=== PATIENT | male | born 1945 | race Caucasian/White ===

== ENCOUNTER 2017-09-30 14:44 | Emergency (ER) | payer OTHER ==
[~2017-09-30] VITALS: Ht 177.8 cm; Wt 83.6 kg
[2017-09-30 14:47] VITALS: TEMP 36.7; Ht 177.8 cm; Wt 83.6 kg
[2017-09-30] MEDS ORDERED: LIDO/EPINEPHRINE/SOD BICARB 20 ML VIAL INFIL ONE (14:54)
[2017-09-30] MEDS ORDERED: SODIUM CHLORIDE 0.9% 1000ML 1,000 ML IV STA (14:57)
[2017-09-30 15:00] VITALS: O2SAT 96
[2017-09-30] MEDS ORDERED: DIPHTHERIA/TETANUS/PERTUSSIS 0.5 ML SYR/VIAL IM. ONE (15:00)
--- NOTE | 2017-09-30 15:01 | EMERGENCY ROOM VISIT NOTE ---
History Report prepared by Brian: James Garcia Under the Supervision of: Dr. Gordy Santos M.D. First contact with patient: 14:49 Chief Complaint: HEAD INJURY (MAJOR) Stated Complaint: TRAUMA History of Present Illness The patient is a 72 year old white male with a past medical history of endocarditis, heart disease with bypass, mitral valve repair, and possible CVA who presents to the ED via EMS with a cc of a sudden head injury that occurred around 2 hours ago. Positive loss of consciousness, left-sided weakness, laceration. Negative notable pain. Per EMS, the patient fell into a band saw, and has a resulting head injury. The patient was noted to lose consciousness while being transferred into the ambulance. He takes a low-dose Aspirin daily but no other blood thinners. He notes that his left side "is not doing what [he ] wants it to do", which most likely caused him to fall. He says that prior to the accident, his left side was working fine. Source of History: patient, EMS Onset: 2 hours ago Position: head Symptom Intensity: laceration Quality: other (injury from saw) Timing: other (sudden) Associated Symptoms: + LOC, + weakness (left side) Note: Associated symptoms: Denies notable pain. Review of Systems See HPI for pertinent positives and negatives. A total of ten systems were reviewed and were otherwise negative. Past Medical & Surgical Medical Problems: (1) Endocarditis (2) Heart disease Surgical Problems: (1) History of heart bypass surgery Family History Family history omitted secondary to patient's advanced age. Social History Drug Use: none Housing Status: lives with family Occupation Status: retired Current/Historical Medications Unable to Obtain Active Prescriptions or Reported Meds Allergies Coded Allergies: No Known Allergies (Unverified , 09/30/17) Physical Exam Vital Signs Date Time Temp Pulse Resp B/P (MAP) Pulse Ox O2 Delivery O2 Flow Rate FiO2 09/30/17 16:20 80 16 142/82 94 Room Air 09/30/17 15:59 80 16 159/87 94 Room Air 09/30/17 15:46 159/87 09/30/17 15:43 84 16 95 09/30/17 15:32 138/86 09/30/17 15:28 80 20 148/86 95 Room Air 09/30/17 15:28 84 19 95 09/30/17 15:27 79 09/30/17 15:15 81 20 148/85 95 Room Air 09/30/17 15:00 96 Room Air 09/30/17 14:50 81 18 159/103 96 Room Air 09/30/17 14:47 36.7 78 18 159/103 96 Room Air 09/30/17 14:47 18 96 Physical Exam GENERAL: Awake, alert, well-appearing, NAD HENT: 12 cm laceration right parietal area across toward forehead. EYES: Blown right pupil. Normal conjunctiva. Sclera non-icteric. NECK: Supple. No nuchal rigidity. FROM. RESPIRATORY: CTAB, no rhonchi, wheezing, crackles CARDIAC: RRR, no MRG ABDOMEN: Soft, NTND, BS+ MSK: No chest wall TTP, no LE edema. Midline sternotomy scar. NEURO: GCS 15, CN 2-12 intact. Left upper extremity 1/5. Left lower extremity 4/ 5. SKIN: No rash or jaundice noted. Medical Decision & Procedures ER Provider Diagnostic Interpretation: Radiology results as stated below per my review and radiologist interpretation: HEAD WITHOUT CONTRAST (CT) CT DOSE: 614.27 mGy.cm HISTORY: Trauma. Mental status change EVALUATE FOR TRAUMA/INJURY TECHNIQUE: Multiaxial CT images of the head were performed without the use of intravenous contrast. A dose lowering technique was utilized adhering to the principles of ALARA. Comparison: None. Findings: Evidence for a bone laceration over the skull convexity. This is oriented obliquely and is nondisplaced from a left superior frontal region to the mid right parietal apex. Intracranial air is noted associated with a parenchymal hematoma measuring 3.9 x 3.2 cm. Hematoma shows a moderate degree of surrounding vasogenic edema. Intracranial air is identified anterior to the right frontal lobe extending to the right inferior frontal fossa. The remaining visualized osseous structures appear unremarkable. There is no evidence for bony depression. Impression: 1. Nondisplaced linear bone laceration over the superior cranial cranial vault as described. 2. Intracranial air over the cerebral convexity as well as in the right perifrontal region. 3. Intracranial bleed superior right frontal/parietal lobe medially deep to the bone laceration. 4. This potentially is posttraumatic, although the possibly of a hemorrhagic infarct or hemorrhagic neoplasm is not excluded. 5. No evidence of midline shift of significance at the current time. The above report was generated using voice recognition software. It may contain grammatical, syntax or spelling errors. Electronically signed by: Case Gifford M.D 09/30/2017 3:19 PM Dictated Date/Time: 09/30/2017 3:14 PM CHEST ONE VIEW PORTABLE CLINICAL HISTORY: EVALUATE FOR TRAUMA/INJURY trauma COMPARISON STUDY: No previous studies for comparison. FINDINGS: The bones soft tissues and hemidiaphragms are normal. The cardiomediastinal silhouette is normal. The lungs are clear. The pulmonary vasculature is normal. Evidence for prior median sternotomy. Moderate calcification mitral annulus. IMPRESSION: No acute process. The above report was generated using voice recognition software. It may contain grammatical, syntax or spelling errors. Electronically signed by: Case Gifford M.D. 09/30/2017 3:42 PM Dictated Date/Time: 09/30/2017 3:41 PM Laboratory Results 09/30/17 15:04 Red Blood Count 4.30, Mean Corpuscular Volume 93.3, Mean Corpuscular Hemoglobin 32.6, Mean Corpuscular Hemoglobin Concent 34.9, Mean Platelet Volume 9.5, Neutrophils (%) (Auto) 86.1, Lymphocytes (%) (Auto) 8.7, Monocytes (%) (Auto) 4.4, Eosinophils (%) (Auto) 0.3, Basophils (%) (Auto) 0.1, Neutrophils # (Auto) 13.97, Lymphocytes # (Auto) 1.42, Monocytes # (Auto) 0.71, Eosinophils # (Auto) 0.05, Basophils # (Auto) 0.02 09/30/17 15:04 Test 09/30/17 15:03 09/30/17 15:04 Bedside Prothrombin Time INR 1.0 (0.9-1.1) White Blood Count 16.24 K/uL (4.8-10.8) Red Blood Count 4.30 M/uL (4.7-6.1) Hemoglobin 14.0 g/dL (14.0-18.0) Hematocrit 40.1 % (42-52) Mean Corpuscular Volume 93.3 fL (80-100) Mean Corpuscular Hemoglobin 32.6 pg (25-34) Mean Corpuscular Hemoglobin Concent 34.9 g/dl (32-36) Platelet Count 178 K/uL (130-400) Mean Platelet Volume 9.5 fL (7.4-10.4) Neutrophils (%) (Auto) 86.1 % Lymphocytes (%) (Auto) 8.7 % Monocytes (%) (Auto) 4.4 % Eosinophils (%) (Auto) 0.3 % Basophils (%) (Auto) 0.1 % Neutrophils # (Auto) 13.97 K/uL (1.4-6.5) Lymphocytes # (Auto) 1.42 K/uL (1.2-3.4) Monocytes # (Auto) 0.71 K/uL (0.11-0.59) Eosinophils # (Auto) 0.05 K/uL (0-0.5) Basophils # (Auto) 0.02 K/uL (0-0.2) RDW Standard Deviation 42.5 fL (36.4-46.3) RDW Coefficient of Variation 12.5 % (11.5-14.5) Immature Granulocyte % (Auto) 0.4 % Immature Granulocyte # (Auto) 0.07 K/uL (0.00-0.02) Prothrombin Time 10.7 SECONDS (9.0-12.0) Prothromb Time International Ratio 1.0 (0.9-1.1) Activated Partial Thromboplast Time 24.0 SECONDS (21.0-31.0) Partial Thromboplastin Ratio 0.9 Anion Gap 6.0 mmol/L (3-11) Est Creatinine Clear Calc Drug Dose 44.8 ml/min Estimated GFR () 51.5 Estimated GFR (Non- 44.4 BUN/Creatinine Ratio 12.8 (10-20) Calcium Level 8.8 mg/dl (8.5-10.1) Total Bilirubin 0.7 mg/dl (0.2-1) Direct Bilirubin 0.2 mg/dl (0-0.2) Aspartate Amino Transf (AST/SGOT) 22 U/L (15-37) Alanine Aminotransferase (ALT/SGPT) 29 U/L (12-78) Alkaline Phosphatase 79 U/L (45-117) Troponin I 0.016 ng/ml (0-0.045) Total Protein 7.3 gm/dl (6.4-8.2) Albumin 4.0 gm/dl (3.4-5.0) Laboratory results reviewed by me Medications Administered Medications (Trade) Dose Ordered Sig/Lucy Route Start Time Stop Time Status Last Admin Dose Admin Sodium Chloride 1,000 ml @ 999 mls/hr Q1H1M STAT IV 09/30/17 14:57 09/30/17 15:57 DC 09/30/17 14:57 999 MLS/HR Diphtheria/ Pertussis/Tetanus Vacc (Adacel Inj) 0.5 ml ONCE ONCE IM. 09/30/17 15:00 09/30/17 15:01 DC 09/30/17 15:37 0.5 ML Vancomycin HCl 1500 mg/Sodium Chloride 280 ml @ 125 mls/hr NOW STAT IV 09/30/17 15:22 09/30/17 17:21 DC 09/30/17 15:37 125 MLS/HR Levetiracetam 1500 mg/Dextrose 115 ml @ 440 mls/hr ONE ONCE IV 09/30/17 15:30 09/30/17 15:45 DC 09/30/17 15:37 440 MLS/HR Cefepime HCl 2000 mg/Syringe 20 ml @ 5 mls/min NOW STAT IV 09/30/17 15:53 09/30/17 15:56 DC 09/30/17 16:05 5 MLS/MIN Ondansetron HCl (Zofran Inj) 4 mg NOW STAT IV 09/30/17 16:14 09/30/17 16:15 DC 09/30/17 16:21 4 MG ED Course 1450: The patient was evaluated in room B1. A complete history and physical exam was performed. 1540: I discussed the patient with Dr. Chapman of the [facility] ED - he will accept the patient via transfer and will evaluate the patient for further treatment. 1542: I reevaluated the patient and he is resting. I discussed the results with the patient, and told him that he will be transferred to the [facility] ED. He expressed understanding and agreement. Medical Decision The patient is a 72 year old white male with a past medical history of endocarditis, heart disease with bypass, mitral valve repair, and possible CVA who presents to the ED via EMS with a cc of a sudden head injury that occurred around 2 hours ago. Positive loss of consciousness, left-sided weakness, laceration. Negative notable pain. Differential diagnosis: Etiologies such as fracture, dislocation, intra-abdominal, pneumothorax, intrathoracic , intracranial, neurologic, as well as other traumatic pathologies were entertained. Patient was seen and evaluated at the bedside. Patient purportedly had some concerns of some left upper extremity weakness around 1245 while he was using a band saw. Patient then did have a fall and struck the band saw in the head. Patient does have a notedthe head. Patient also does have noted left upper extremity greater than left lower extremity weakness in addition to a right blown pupil. Patient does have a prior history of a lens replacement which may be related to the anisocoria. Patient did have blood work that was completed along with a CT of the brain. A code stroke was called given that the patient was symptomatic prior to his traumatic incident. Patient did have noted open fracture of his school with some bleeding. Patient may had a hemorrhagic stroke versus ischemic stroke alert is difficult to say given the presents now for the blood is. It is not appear to be directly where the basal ganglia are. Patient was given broad-spectrum antibiotics as well as Keppra for the open fracture and seizure prophylaxis respectively. Patient did take a baby aspirin but does not take any other blood thinning medications. Patient has normal coagulation studies, hemoglobin, platelet count. Given these findings I did discuss the patient with the transfer center as well as Dr. Chapman of the emergency department at [facility] as well as the trauma surgeon. Patient was [place] [facility] Head Trauma GCS Score: 15 Medication Reconcilliation Current Medication List: was personally reviewed by me Blood Pressure Screening Patient's blood pressure: Elevated blood pressure Refer to [facility] ER physicians. Consults Time Called: 1535 Consulting Physician: Dr. Chapman of the [facility] ED Returned Call: 1540 I discussed the patient with Dr. Chapman of the [facility] ED - he will accept the patient via transfer and will evaluate the patient for further treatment. Impression Primary Impression: Skull fracture Additional Impressions: Laceration of head Fall LUE weakness CVA (cerebral vascular accident) Critical Care I have personally spent greater than 45 minutes of critical care time in the direct management of this patient. This includes bedside care, interpretation of diagnostic studies, and testing, discussion with consultants, patient, and family members, and other required patient management activities. This 45 minutes is in excess of all separately billable procedures. Scribe Attestation The scribe's documentation has been prepared under my direction and personally reviewed by me in its entirety. I confirm that the note above accurately reflects all work, treatment, procedures, and medical decision making performed by me. Time Last Known Well 1245 Stroke t-PA Criteria Reviewed Does NOT meet criteria for t-PA Reason t-PA Not Given Contraindicated Strict Exclusion Criteria CT findings of ICH or SAH Departure Information Dispostion Transfer Acute Care Facility (to [facility]) Prescriptions Unable to Obtain Active Prescriptions or Reported Meds Patient Instructions My [facility] Problem Qualifiers Primary Impression: Skull fracture Encounter type: initial encounter Skull bone/location: parietal bone Fracture type: open Qualified Codes: S02.0XXB - Fracture of vault of skull, initial encounter for open fracture Additional Impressions: Laceration of head Encounter type: initial encounter Location of open wound of head: scalp Foreign body presence: without foreign body Qualified Codes: S01.01XA - Laceration without foreign body of scalp, initial encounter Fall Encounter type: initial encounter Qualified Codes: W19.XXXA - Unspecified fall, initial encounter CVA (cerebral vascular accident) CVA mechanism: unspecified Qualified Codes: I63.9 - Cerebral infarction, unspecified
--- NOTE | 2017-09-30 15:20 | DIAGNOSTIC IMAGING REPORT ---
HEAD WITHOUT CONTRAST (CT) CT DOSE: 614.27 mGy.cm HISTORY: Trauma. Mental status change EVALUATE FOR TRAUMA/INJURY TECHNIQUE: Multiaxial CT images of the head were performed without the use of intravenous contrast. A dose lowering technique was utilized adhering to the principles of ALARA. Comparison: None. Findings: Evidence for a bone laceration over the skull convexity. This is oriented obliquely and is nondisplaced from a left superior frontal region to the mid right parietal apex. Intracranial air is noted associated with a parenchymal hematoma measuring 3.9 x 3.2 cm. Hematoma shows a moderate degree of surrounding vasogenic edema. Intracranial air is identified anterior to the right frontal lobe extending to the right inferior frontal fossa. The remaining visualized osseous structures appear unremarkable. There is no evidence for bony depression. Impression: 1. Nondisplaced linear bone laceration over the superior cranial cranial vault as described. 2. Intracranial air over the cerebral convexity as well as in the right perifrontal region. 3. Intracranial bleed superior right frontal/parietal lobe medially deep to the bone laceration. 4. This potentially is posttraumatic, although the possibly of a hemorrhagic infarct or hemorrhagic neoplasm is not excluded. 5. No evidence of midline shift of significance at the current time. The above report was generated using voice recognition software. It may contain grammatical, syntax or spelling errors. Electronically signed by: Case Gifford M.D. 09/30/2017 3:19 PM Dictated Date/Time: 09/30/2017 3:14 PM
[2017-09-30] MEDS ORDERED: CEFTRIAXONE SOD INJ 1 GM ADDVIAL IV STA (15:22)
[2017-09-30] MEDS ORDERED: VANCOMYCIN INJ 1,500 MG in SODIUM CHLORIDE 0.9% 250ML 250 ML IV STA (15:22)
[2017-09-30] MEDS ORDERED: LEVETIRACETAM IV 1,500 MG in DEXTROSE 5% 100ML 100 ML IV ONE (15:30)
[2017-09-30 15:31] LABS: BASO % 0.1 %; BASO ABS # 0.02 K/uL (0-0.2); EOS % 0.3 %; EOS ABS # 0.05 K/uL (0-0.5); HEMATOCRIT 40.1 % (42-52); IG# 0.07 K/uL (0.00-0.02); LYMPH % 8.7 %; LYMPH ABS # 1.42 K/uL (1.2-3.4); MEAN CELL VOLUME 93.3 fL (80-100); MEAN CORPUSCULAR HEMOGLOBIN 32.6 pg (25-34); MEAN CORPUSCULAR HGB CONC 34.9 g/dl (32-36); MEAN PLATELET VOLUME 9.5 fL (7.4-10.4); MONO % 4.4 %; MONO ABS # 0.71 K/uL (0.11-0.59); NEUT % 86.1 %; NEUT ABS # 13.97 K/uL (1.4-6.5); PLATELET COUNT 178 K/uL (130-400); RED CELL DISTRIBUTION WIDTH CV 12.5 % (11.5-14.5); RED CELL DISTRIBUTION WIDTH SD 42.5 fL (36.4-46.3); WHITE BLOOD COUNT 16.24 K/uL (4.8-10.8)
[2017-09-30 15:33] LABS: CALCIUM 8.8 mg/dl (8.5-10.1); CREATININE 1.54 mg/dl (0.60-1.40); POTASSIUM 3.9 mmol/L (3.5-5.1)
[2017-09-30 15:36] LABS: TOTAL PROTEIN 7.3 gm/dl (6.4-8.2)
[2017-09-30] MEDS ORDERED: CEFEPIME IV 2,000 MG in DEXTROSE 5% 100ML 100 ML IV STA (15:41)
--- NOTE | 2017-09-30 15:43 | DIAGNOSTIC IMAGING REPORT ---
CHEST ONE VIEW PORTABLE CLINICAL HISTORY: EVALUATE FOR TRAUMA/INJURY trauma COMPARISON STUDY: No previous studies for comparison. FINDINGS: The bones soft tissues and hemidiaphragms are normal. The cardiomediastinal silhouette is normal. The lungs are clear. The pulmonary vasculature is normal. Evidence for prior median sternotomy. Moderate calcification mitral annulus. IMPRESSION: No acute process. The above report was generated using voice recognition software. It may contain grammatical, syntax or spelling errors. Electronically signed by: Case Gifford M.D. 09/30/2017 3:42 PM Dictated Date/Time: 09/30/2017 3:41 PM
[2017-09-30] MEDS ORDERED: CEFEPIME IV 2,000 MG in SYRINGE 7.5 ML IV STA (15:53)
[2017-09-30] MEDS ORDERED: ONDANSETRON INJ 2 MG/ML 2 ML VIAL IV STA (16:14)
[2017-09-30] MEDS ORDERED: ONDANSETRON INJ 2 MG/ML 2 ML VIAL ONE (16:14)
[2017-09-30 16:20] VITALS: BP 142/82; PULSE 80; O2SAT 94
== END 2017-09-30 16:25 | disposition short-term general hospital (02) ==
LOC: C.EDB 14:48
DX: S01.01XA Laceration without foreign body of scalp, initial encounter (principal); S02.0XXB Fracture of vault of skull, initial encounter for open fracture; I63.9 Cerebral infarction, unspecified; M62.81 Muscle weakness (generalized); W31.2XXA Contact with powered woodworking and forming machines, initial encounter; Y92.9 Unspecified place or not applicable; I38 Endocarditis, valve unspecified; I51.9 Heart disease, unspecified; Z95.1 Presence of aortocoronary bypass graft; Z79.82 Long term (current) use of aspirin

== ENCOUNTER 2017-11-30 07:04 | Emergency (ER) | payer OTHER ==
[~2017-11-30] VITALS: Ht 177.8 cm; Wt 76.4 kg
[2017-11-30 07:11] VITALS: TEMP 36.8; Ht 177.8 cm; Wt 76.4 kg
[2017-11-30] MEDS ORDERED: SODIUM CHLORIDE 0.9% 1000ML 1,000 ML IV STA (07:32)
[2017-11-30] MEDS ORDERED: TAMS0.4C38 PO (07:59)
[2017-11-30] MEDS ORDERED: AMLO-114 PO (07:59)
[2017-11-30] MEDS ORDERED: CIPR1TAB10 PO (07:59)
[2017-11-30] MEDS ORDERED: BRIM0.1S OP (07:59)
[2017-11-30] MEDS ORDERED: MULT-513 PO (07:59)
[2017-11-30] MEDS ORDERED: BRIM0.15 OP (07:59)
[2017-11-30] MEDS ORDERED: PROB1TAB16 PO (07:59)
[2017-11-30 08:06] LABS: BASO % 0.2 %; BASO ABS # 0.03 K/uL (0-0.2); EOS % 1.5 %; HEMATOCRIT 34.7 % (42-52); HEMOGLOBIN 11.7 g/dL (14.0-18.0); IG# 0.04 K/uL (0.00-0.02); LYMPH % 9.5 %; LYMPH ABS # 1.23 K/uL (1.2-3.4); MEAN CORPUSCULAR HGB CONC 33.7 g/dl (32-36); MEAN PLATELET VOLUME 9.1 fL (7.4-10.4); MONO % 6.9 %; NEUT % 81.6 %; NEUT ABS # 10.55 K/uL (1.4-6.5); PLATELET COUNT 272 K/uL (130-400); RED CELL DISTRIBUTION WIDTH CV 14.1 % (11.5-14.5); RED CELL DISTRIBUTION WIDTH SD 47.1 fL (36.4-46.3); WHITE BLOOD COUNT 12.95 K/uL (4.8-10.8)
[2017-11-30 08:21] LABS: ALBUMIN 3.3 gm/dl (3.4-5.0); CALCIUM 9.1 mg/dl (8.5-10.1); CREATININE 1.24 mg/dl (0.60-1.40); POTASSIUM 3.8 mmol/L (3.5-5.1)
[2017-11-30 08:24] LABS: TOTAL PROTEIN 7.4 gm/dl (6.4-8.2)
--- NOTE | 2017-11-30 09:38 | EMERGENCY ROOM VISIT NOTE ---
History Report prepared by Brian: James Garcia Under the Supervision of: Dr. Giancarlo Dumont D.O. First contact with patient: 07:18 Chief Complaint: DIARRHEA Stated Complaint: ANTIBIOTIC USE - POSSIBLE C-DIFF Nursing Triage Summary: Pt states pt was in [facility], in [facility] he had a UTI,took antibiotic and got C-Diff. Now he's On Cipro for Urinary infection and he started with Diarrhead yesterday morning. Hx Stroke, left arm in sling for arm weakness. Lives at home now. History of Present Illness The patient is a 72 year old male with a history of a stroke and persistent left arm weakness who presents to the Emergency Room coming from home with complaints of persistent diarrhea that started 3 days ago. He states that he had C. difficile a couple weeks ago and was treated with a round of Vancomycin. The patient notes that before he got the C. difficile he cut his head with a chainsaw, and was treated with antibiotics for that. He says that he finished the round of the Vancomycin a week ago. The patient now has a UTI, per the patient's , and the patient had been in [facility] when the UTI started. He was put on Cipro for the UTI. However, the patient started having intense diarrhea yesterday morning. The patient denies any abdominal pain. Source of History: patient, spouse/significant other Onset: 3 days ago Position: other (global - diarrhea) Symptom Intensity: intense Quality: other (hx of C difficile) Timing: other (persistent) Associated Symptoms: No abdominal pain Note: No other associated symptoms noted. Review of Systems See HPI for pertinent positives & negatives. A total of 10 systems reviewed and were otherwise negative. Past Medical & Surgical Medical Problems: (1) Endocarditis (2) Heart disease Surgical Problems: (1) History of heart bypass surgery Family History Family history limited secondary to patient's advanced age. Social History Smoking Status: Never Smoker Drug Use: none Housing Status: lives with family Occupation Status: retired Current/Historical Medications Scheduled Amlodipine (Norvasc), 10 MG PO DAILY Brimonidine Tartrate (Alphagan P Oph), 1 DROP OP BID Ciprofloxacin Hcl (Cipro), 500 MG PO BID Multivitamins/Minerals (Mvi With Minerals), 1 TAB PO DAILY Probiotic Product (Probiotic), 1 TAB PO DAILY Tamsulosin Hcl (Flomax), 0.4 MG PO HS Allergies Coded Allergies: No Known Allergies (Unverified , 09/30/17) Physical Exam Vital Signs Date Time Temp Pulse Resp B/P (MAP) Pulse Ox O2 Delivery O2 Flow Rate FiO2 11/30/17 09:43 75 11/30/17 09:01 76 18 145/81 97 Room Air 11/30/17 07:42 89 11/30/17 07:11 36.8 99 16 144/82 97 Room Air Physical Exam CONSTITUTIONAL/VITAL SIGNS: Reviewed / noted above. GENERAL: Non-toxic in appearance. INTEGUMENTARY: Warm, dry, and [employer]. HEAD: Normocephalic. Completely healed wound to the head. EYES: without scleral icterus or trauma. ENT/OROPHARYNX: clear and moist. LYMPHADENOPATHY/NECK: Is supple without lymphadenopathy or meningismus. RESPIRATORY: Lungs clear and equal. CARDIOVASCULAR: Regular rate and rhythm. GI/ABDOMEN: Soft and nontender. No organomegaly or pulsatile mass. No rebound or guarding. Normal bowel sounds. EXTREMITIES: Warm and well perfused. BACK: No CVA tenderness. NEUROLOGICAL: Intact without focal deficits. PSYCHIATRIC: normal affect. MUSCULOSKELETAL: Normally developed with good muscle tone. TRIAGE NURSING DOCUMENTATION REVIEWED. Medical Decision & Procedures Laboratory Results 11/30/17 07:53 Red Blood Count 3.77, Mean Corpuscular Volume 92.0, Mean Corpuscular Hemoglobin 31.0, Mean Corpuscular Hemoglobin Concent 33.7, Mean Platelet Volume 9.1, Neutrophils (%) (Auto) 81.6, Lymphocytes (%) (Auto) 9.5, Monocytes (%) (Auto) 6.9, Eosinophils (%) (Auto) 1.5, Basophils (%) (Auto) 0.2, Neutrophils # (Auto) 10.55, Lymphocytes # (Auto) 1.23, Monocytes # (Auto) 0.90, Eosinophils # (Auto) 0.20, Basophils # (Auto) 0.03 11/30/17 07:53 Test 11/30/17 07:53 White Blood Count 12.95 K/uL (4.8-10.8) Red Blood Count 3.77 M/uL (4.7-6.1) Hemoglobin 11.7 g/dL (14.0-18.0) Hematocrit 34.7 % (42-52) Mean Corpuscular Volume 92.0 fL (80-100) Mean Corpuscular Hemoglobin 31.0 pg (25-34) Mean Corpuscular Hemoglobin Concent 33.7 g/dl (32-36) Platelet Count 272 K/uL (130-400) Mean Platelet Volume 9.1 fL (7.4-10.4) Neutrophils (%) (Auto) 81.6 % Lymphocytes (%) (Auto) 9.5 % Monocytes (%) (Auto) 6.9 % Eosinophils (%) (Auto) 1.5 % Basophils (%) (Auto) 0.2 % Neutrophils # (Auto) 10.55 K/uL (1.4-6.5) Lymphocytes # (Auto) 1.23 K/uL (1.2-3.4) Monocytes # (Auto) 0.90 K/uL (0.11-0.59) Eosinophils # (Auto) 0.20 K/uL (0-0.5) Basophils # (Auto) 0.03 K/uL (0-0.2) RDW Standard Deviation 47.1 fL (36.4-46.3) RDW Coefficient of Variation 14.1 % (11.5-14.5) Immature Granulocyte % (Auto) 0.3 % Immature Granulocyte # (Auto) 0.04 K/uL (0.00-0.02) Anion Gap 8.0 mmol/L (3-11) Est Creatinine Clear Calc Drug Dose 55.6 ml/min Estimated GFR () 66.9 Estimated GFR (Non- 57.7 BUN/Creatinine Ratio 14.8 (10-20) Calcium Level 9.1 mg/dl (8.5-10.1) Total Bilirubin 0.5 mg/dl (0.2-1) Direct Bilirubin 0.1 mg/dl (0-0.2) Aspartate Amino Transf (AST/SGOT) 10 U/L (15-37) Alanine Aminotransferase (ALT/SGPT) 22 U/L (12-78) Alkaline Phosphatase 64 U/L (45-117) Total Protein 7.4 gm/dl (6.4-8.2) Albumin 3.3 gm/dl (3.4-5.0) Laboratory results as stated above per my review. Medications Administered Medications (Trade) Dose Ordered Sig/Lucy Route Start Time Stop Time Status Last Admin Dose Admin Sodium Chloride 1,000 ml @ 999 mls/hr Q1H1M STAT IV 11/30/17 07:32 11/30/17 08:32 DC 11/30/17 08:00 999 MLS/HR Ceftriaxone Sodium (Rocephin Inj) 1 gm NOW STAT IV 11/30/17 09:42 11/30/17 09:43 DC 11/30/17 10:01 1 GM ED Course 0718: Previous medical records were reviewed. The patient was evaluated in room B8. A complete history and physical examination was performed. 0732: Ordered NSS 1000 ml @ 999 mls/hr IV. 0939: On reevaluation, the patient is resting comfortably. I discussed the results and findings with the patient. He verbalized agreement of the treatment plan. He was discharged home. 0942: Ordered Rocephin Inj 1 gm IV. Medical Decision Differential diagnosis: Etiologies such as C. difficile, gastroenteritis, food borne illness, infections , appendicitis, diverticulitis, inflammatory bowel disease, obstruction, GI bleed, biliary pathology, as well as others were entertained. This is a 72-year-old male who presents to the ED with a chief complaint of diarrhea. The patient had a traumatic head wound in late September that required antibiotics. The patient subsequently developed C. difficile diarrhea and finished a course of Flagyl about 1 week ago. His diarrhea resolved. The patient started Cipro for UTI on . He developed diarrhea yesterday morning. The patient has had this since yesterday. He came in for evaluation of the diarrhea. Patient's exam was normal. The patient's blood work reveals a white blood cell count of 12.95, hemoglobin is 11.7, complete metabolic panel was unremarkable. The patient was unable to have any diarrhea during his stay. He was given IV Rocephin for his urinary tract infection. He states that he has had 3 doses of Cipro thus far. He was here for over 3 hours. He was felt to be stable for discharge. A urine dip here revealed 1+ leukocytes. No nitrites. A culture has been sent. The patient was advised to discontinue his antibiotics as his symptoms have mostly abated. The patient will need contacted if he has a positive urine culture. Of note, the urine was obtained before his Rocephin was given. Medication Reconcilliation Current Medication List: was personally reviewed by me Blood Pressure Screening Patient's blood pressure: Elevated blood pressure Blood pressure disposition: Elevated BP felt to be situational Impression Primary Impression: Diarrhea Scribe Attestation The scribe's documentation has been prepared under my direction and personally reviewed by me in its entirety. I confirm that the note above accurately reflects all work, treatment, procedures, and medical decision making performed by me. Departure Information Dispostion Home / Self-Care Referrals No Doctor, Assigned (PCP) Patient Instructions My [facility] Additional Instructions Follow-up with your doctor for further care and evaluation in 1-2 days. Return to the emergency department for worsening or new symptoms or any concerns. You have been examined and treated today on an emergency basis only. This is not a substitute for, or an effort to provide, complete comprehensive medical care. It is impossible to recognize and treat all injuries or illnesses in a single emergency department visit. It is therefore important that you follow up closely with your doctor. Call as soon as possible for an appointment. Stop your antibiotics for now. Call here for urine culture results on Friday around noon for urine culture results if your have not been contacted before then. Problem Qualifiers Primary Impression: Diarrhea Diarrhea type: unspecified type Qualified Codes: R19.7 - Diarrhea, unspecified
[2017-11-30] MEDS ORDERED: CEFTRIAXONE SOD INJ 1 GM ADDVIAL IV STA (09:42)
[2017-11-30 11:02] VITALS: BP 129/65; PULSE 75; O2SAT 98
[2017-11-30] MEDS ORDERED: VANC5CAP PO (12:34)
--- NOTE | 2017-11-30 12:35 | EMERGENCY ROOM VISIT NOTE ---
ED Visit Note First contact with patient: 07:18 The patient was able to give a stool sample just prior to discharge. The stool sample came back positive for C. difficile. The patient was sent in a prescription for vancomycin for 10 days.
== END 2017-11-30 11:04 | disposition home or self-care (01) ==
LOC: C.EDB 07:06
DX: R19.7 Diarrhea, unspecified (principal); I51.9 Heart disease, unspecified; Z87.19 Personal history of other diseases of the digestive system

== ENCOUNTER 2017-12-17 11:14 | Emergency (ER) | payer OTHER ==
[~2017-12-17] VITALS: Ht 177.8 cm; Wt 89.0 kg
[~2017-12-17 11:14] MED LIST: AMLO-114 PO; BRIM0.1S OP; CIPR1TAB10 PO; MULT-513 PO; PROB1TAB16 PO; TAMS0.4C38 PO; VANC5CAP PO
[2017-12-17 11:15] VITALS: TEMP 37.1
[2017-12-17] MEDS ORDERED: SODIUM CHLORIDE 0.9% 1000ML 1,000 ML IV STA (11:36)
[2017-12-17 11:46] VITALS: O2SAT 98; Ht 177.8 cm; Wt 89.0 kg
[2017-12-17 12:13] LABS: BASO % 0.2 %; BASO ABS # 0.03 K/uL (0-0.2); EOS % 0.5 %; EOS ABS # 0.08 K/uL (0-0.5); HEMATOCRIT 38.2 % (42-52); HEMOGLOBIN 12.9 g/dL (14.0-18.0); IG# 0.05 K/uL (0.00-0.02); LYMPH % 5.5 %; LYMPH ABS # 0.94 K/uL (1.2-3.4); MEAN CELL VOLUME 91.6 fL (80-100); MEAN CORPUSCULAR HEMOGLOBIN 30.9 pg (25-34); MEAN CORPUSCULAR HGB CONC 33.8 g/dl (32-36); MEAN PLATELET VOLUME 9.3 fL (7.4-10.4); MONO % 6.4 %; MONO ABS # 1.09 K/uL (0.11-0.59); NEUT % 87.1 %; NEUT ABS # 14.76 K/uL (1.4-6.5); PLATELET COUNT 249 K/uL (130-400); RED CELL DISTRIBUTION WIDTH CV 14.4 % (11.5-14.5); RED CELL DISTRIBUTION WIDTH SD 48.4 fL (36.4-46.3); WHITE BLOOD COUNT 16.95 K/uL (4.8-10.8)
--- NOTE | 2017-12-17 12:30 | DIAGNOSTIC IMAGING REPORT ---
HEAD CT NONCONTRAST CT DOSE: 687.98 mGy.cm HISTORY: Altered mental status. TECHNIQUE: Multiaxial CT images of the head were performed without the use of intravenous contrast. Automated exposure control was utilized for this study. A dose lowering technique was utilized adhering to the principles of ALARA. Comparison: Head CT 09/30/2017. Findings: The paranasal sinuses and mastoid air cells are clear. There is a linear defect remaining at the high convexity of the calvarium due to the old trauma. Trace right subdural fluid collection is noted. This demonstrates a maximal thickness of 5 mm. 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 No significant midline shift. Encephalomalacia within the right high convexity due to the old parenchymal hematoma/injury. There are small focal areas of encephalomalacia within the left frontal lobe and left cerebral hemisphere consistent with old infarcts. Stable 1.8 x 4.5 cm CSF density extra-axial focus within the left posterior fossa. This results in mild mass effect along the cerebellar hemisphere. This favors an arachnoid cyst. There is no mass, acute infarct, or acute intracranial hemorrhage. Impression: Chronic and old posttraumatic changes as described above. No acute intracranial abnormality. Electronically signed by: Jaswinder Jenkins M.D. 12/17/2017 12:28 PM Dictated Date/Time: 12/17/2017 12:15 PM
[2017-12-17 12:34] LABS: ALBUMIN 3.8 gm/dl (3.4-5.0); BLOOD UREA NITROGEN 18 mg/dl (7-18); CALCIUM 9.1 mg/dl (8.5-10.1); CARBON DIOXIDE 25 mmol/L (21-32); CREATININE 1.17 mg/dl (0.60-1.40); GLUCOSE 94 mg/dl (70-99); POTASSIUM 3.6 mmol/L (3.5-5.1); SODIUM 136 mmol/L (136-145)
--- NOTE | 2017-12-17 12:39 | DIAGNOSTIC IMAGING REPORT ---
CHEST ONE VIEW PORTABLE CLINICAL HISTORY: Pt c/o syncope COMPARISON STUDY: 09/30/2017 FINDINGS: Prior median sternotomy. Lungs are clear. Small calcified granulomas unchanged. Diaphragms smooth. Costophrenic angles are sharp. IMPRESSION: Chronic granulomatous change. No acute process. The above report was generated using voice recognition software. It may contain grammatical, syntax or spelling errors. Electronically signed by: Case Gifford M.D. 12/17/2017 12:38 PM Dictated Date/Time: 12/17/2017 12:37 PM
[2017-12-17 12:44] LABS: ALKALINE PHOSPHATASE 80 U/L (45-117); ALT/SGPT 33 U/L (12-78); AST/SGOT 19 U/L (15-37); CKMB 1.8 ng/ml (0.5-3.6); TOTAL PROTEIN 7.8 gm/dl (6.4-8.2)
--- NOTE | 2017-12-17 13:25 | EMERGENCY ROOM VISIT NOTE ---
History Report prepared by Brian: Pippa Flores Under the Supervision of: Dr. Giancarlo Summers M.D. First contact with patient: 11:27 Chief Complaint: SYNCOPE Stated Complaint: SYNCOPE History of Present Illness The patient is a 72 year old male who presents to the Emergency Room with complaints of an episode of syncope occurring [employer]. The patient is currently attending outpatient therapy at [facility] after a stroke and a head injury occurring in September 2017. He was at therapy today and was sitting on a chair. While he was seated he began to feel diaphoretic and slightly dizzy. This lasted for about a minute and then the patient had a syncopal episode. He does not remember passing out. Witnesses told him that he was unconscious for a few seconds. The patient states that he had been feeling well all day. He denies any headache or abdominal pain. 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 A total of 10 systems reviewed and were otherwise negative. Past Medical & Surgical Medical Problems: (1) Endocarditis (2) Heart disease Surgical Problems: (1) History of heart bypass surgery Family History No pertinent history stated. Social History Smoking Status: Never Smoker Drug Use: none Marital Status: Housing Status: lives with family Occupation Status: retired Current/Historical Medications Scheduled Amlodipine (Norvasc), 10 MG PO DAILY Brimonidine Tartrate (Alphagan P Oph), 1 DROP OP BID Multivitamins/Minerals (Mvi With Minerals), 1 TAB PO DAILY Tamsulosin Hcl (Flomax), 0.4 MG PO HS Allergies Coded Allergies: No Known Allergies (Unverified , 12/17/17) Physical Exam Vital Signs Date Time Temp Pulse Resp B/P (MAP) Pulse Ox O2 Delivery O2 Flow Rate FiO2 12/17/17 13:44 77 20 125/72 98 12/17/17 12:48 69 20 119/69 98 Room Air 12/17/17 12:46 67 20 119/69 98 Room Air 69 134/76 92 133/79 12/17/17 11:46 98 Room Air 12/17/17 11:46 98 Room Air 12/17/17 11:22 78 12/17/17 11:15 37.1 73 20 144/80 98 Room Air Physical Exam GENERAL: Awake, alert, well-appearing, in no acute distress HENT: Normocephalic, atraumatic. Oropharynx unremarkable. EYES: Normal conjunctiva. Sclera non-icteric. NECK: Supple. No nuchal rigidity. FROM. No JVD. RESPIRATORY: Clear to auscultation. CARDIAC: Regular rate, normal rhythm. 2/6 systolic ejection murmur. Extremities warm and well perfused. Pulses equal. ABDOMEN: Soft, non-distended. No tenderness to palpation. No rebound or guarding. No masses. RECTAL: Deferred. MUSCULOSKELETAL: Chest examination reveals no tenderness. The back is symmetrical on inspection without obvious abnormality. There is no CVA tenderness to palpation. No joint edema. LOWER EXTREMITIES: Calves are equal size bilaterally and non-tender. No edema. No discoloration. NEURO: Normal sensorium. 3/5 strength left arm. SKIN: No rash or jaundice noted. Medical Decision & Procedures ER Provider Diagnostic Interpretation: Radiology results as stated below per my review and radiologist interpretation: HEAD CT NONCONTRAST CT DOSE: 687.98 mGy.cm HISTORY: Altered mental status. TECHNIQUE: Multiaxial CT images of the head were performed without the use of intravenous contrast. Automated exposure control was utilized for this study. A dose lowering technique was utilized adhering to the principles of ALARA. Comparison: Head CT 09/30/2017. Findings: The paranasal sinuses and mastoid air cells are clear. There is a linear defect remaining at the high convexity of the calvarium due to the old trauma. Trace right subdural fluid collection is noted. This demonstrates a maximal thickness of 5 mm. 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 No significant midline shift. Encephalomalacia within the right high convexity due to the old parenchymal hematoma/injury. There are small focal areas of encephalomalacia within the left frontal lobe and left cerebral hemisphere consistent with old infarcts. Stable 1.8 x 4.5 cm CSF density extra-axial focus within the left posterior fossa. This results in mild mass effect along the cerebellar hemisphere. This favors an arachnoid cyst. There is no mass, acute infarct, or acute intracranial hemorrhage. Impression: Chronic and old posttraumatic changes as described above. No acute intracranial abnormality. Electronically signed by: Jaswinder Jenkins M.D. 12/17/2017 12:28 PM Dictated Date/Time: 12/17/2017 12:15 PM CHEST ONE VIEW PORTABLE CLINICAL HISTORY: Pt c/o syncope COMPARISON STUDY: 09/30/2017 FINDINGS: Prior median sternotomy. Lungs are clear. Small calcified granulomas unchanged. Diaphragms smooth. Costophrenic angles are sharp. IMPRESSION: Chronic granulomatous change. No acute process. The above report was generated using voice recognition software. It may contain grammatical, syntax or spelling errors. Electronically signed by: Case Gifford M.D. 12/17/2017 12:38 PM Dictated Date/Time: 12/17/2017 12:37 PM Laboratory Results 12/17/17 11:55 Red Blood Count 4.17, Mean Corpuscular Volume 91.6, Mean Corpuscular Hemoglobin 30.9, Mean Corpuscular Hemoglobin Concent 33.8, Mean Platelet Volume 9.3, Neutrophils (%) (Auto) 87.1, Lymphocytes (%) (Auto) 5.5, Monocytes (%) (Auto) 6.4, Eosinophils (%) (Auto) 0.5, Basophils (%) (Auto) 0.2, Neutrophils # (Auto) 14.76, Lymphocytes # (Auto) 0.94, Monocytes # (Auto) 1.09, Eosinophils # (Auto) 0.08, Basophils # (Auto) 0.03 12/17/17 11:55 Test 12/17/17 11:55 12/17/17 12:40 White Blood Count 16.95 K/uL (4.8-10.8) Red Blood Count 4.17 M/uL (4.7-6.1) Hemoglobin 12.9 g/dL (14.0-18.0) Hematocrit 38.2 % (42-52) Mean Corpuscular Volume 91.6 fL (80-100) Mean Corpuscular Hemoglobin 30.9 pg (25-34) Mean Corpuscular Hemoglobin Concent 33.8 g/dl (32-36) Platelet Count 249 K/uL (130-400) Mean Platelet Volume 9.3 fL (7.4-10.4) Neutrophils (%) (Auto) 87.1 % Lymphocytes (%) (Auto) 5.5 % Monocytes (%) (Auto) 6.4 % Eosinophils (%) (Auto) 0.5 % Basophils (%) (Auto) 0.2 % Neutrophils # (Auto) 14.76 K/uL (1.4-6.5) Lymphocytes # (Auto) 0.94 K/uL (1.2-3.4) Monocytes # (Auto) 1.09 K/uL (0.11-0.59) Eosinophils # (Auto) 0.08 K/uL (0-0.5) Basophils # (Auto) 0.03 K/uL (0-0.2) RDW Standard Deviation 48.4 fL (36.4-46.3) RDW Coefficient of Variation 14.4 % (11.5-14.5) Immature Granulocyte % (Auto) 0.3 % Immature Granulocyte # (Auto) 0.05 K/uL (0.00-0.02) Anion Gap 8.0 mmol/L (3-11) Est Creatinine Clear Calc Drug Dose 64.1 ml/min Estimated GFR () 71.8 Estimated GFR (Non- 61.9 BUN/Creatinine Ratio 15.0 (10-20) Calcium Level 9.1 mg/dl (8.5-10.1) Total Bilirubin 0.6 mg/dl (0.2-1) Direct Bilirubin 0.1 mg/dl (0-0.2) Aspartate Amino Transf (AST/SGOT) 19 U/L (15-37) Alanine Aminotransferase (ALT/SGPT) 33 U/L (12-78) Alkaline Phosphatase 80 U/L (45-117) Total Creatine Kinase 182 U/L (39-308) Creatine Kinase MB 1.8 ng/ml (0.5-3.6) Creatine Kinase MB Ratio 1.0 (0-3.0) Troponin I < 0.015 ng/ml (0-0.045) Total Protein 7.8 gm/dl (6.4-8.2) Albumin 3.8 gm/dl (3.4-5.0) Thyroid Stimulating Hormone (TSH) 6.400 uIu/ml (0.300-4.500) Urine Color YELLOW Urine Appearance CLEAR (CLEAR) Urine pH 5.0 (4.5-7.5) Urine Specific [place] 1.019 (1.000-1.030) Urine Protein NEG (NEG) Urine Glucose (UA) NEG (NEG) Urine Ketones NEG (NEG) Urine Occult Blood NEG (NEG) Urine Nitrite NEG (NEG) Urine Bilirubin NEG (NEG) Urine Urobilinogen NEG (NEG) Urine Leukocyte Esterase TRACE (NEG) Urine WBC (Auto) 1-5 /hpf (0-5) Urine RBC (Auto) 0-4 /hpf (0-4) Urine Hyaline Casts (Auto) 1-5 /lpf (0-5) Urine Epithelial Cells (Auto) 5-10 /lpf (0-5) Urine Bacteria (Auto) NEG (NEG) Labs reviewed by ED physician. Medications Administered Medications (Trade) Dose Ordered Sig/Lucy Route Start Time Stop Time Status Last Admin Dose Admin Sodium Chloride 1,000 ml @ 999 mls/hr Q1H1M STAT IV 12/17/17 11:36 12/17/17 12:36 DC 12/17/17 12:07 999 MLS/HR ECG Per My Interpretation Indication: syncope Rate (beats per minute): 72 Rhythm: normal sinus Findings: other (no ST elevation; no ST depression; normal ECG) ED Course 1127: Past medical records reviewed. The patient was evaluated in room C10. A complete history and physical examination was performed. 1136: NSS 1000 ml @ 999 mls/hr IV 1316: I reassessed the patient at this time. He is feeling better and resting comfortably. I discussed the results and treatment plan with the patient. I answered all pertaining questions that he had. He expressed understanding and verbalized agreement. The patient will be discharged home. Medical Decision Differential diagnosis: Etiologies such as vasovagal event, infection, hypoglycemia, electrolyte abnormalities, cardiac sources, intracerebral event, toxicologic, neurologic, as well as others were entertained. This is a 72-year-old male who presents the emergency department after vasovagal episode while doing rehabilitation today. I will note that the patient does have an elevation in his white blood cell count however I will also note that it is chronically elevated and he does not have any fever here or any evidence of infection on examination. The patient was given a normal saline bolus here in the emergency department. Repeat examination revealed improvement in the patient's symptoms. CAT scan of the head does not show any new process. I feel based on the symptoms that the patient can be safely discharged back home. I did contact case management to get this patient with a [facility] doctor locally. Patient and are in agreement with the treatment plan. Medication Reconcilliation Current Medication List: was personally reviewed by me Blood Pressure Screening Patient's blood pressure: Normal blood pressure Impression Primary Impression: Dehydration Scribe Attestation The scribe's documentation has been prepared under my direction and personally reviewed by me in its entirety. I confirm that the note above accurately reflects all work, treatment, procedures, and medical decision making performed by me. Departure Information Dispostion Home / Self-Care Referrals No Doctor, Assigned (PCP) Forms HOME CARE DOCUMENTATION FORM, IMPORTANT VISIT INFORMATION Patient Instructions My [facility] Additional Instructions Increase fluids next 48 hours Return if you develop fevers, chills, weakness, altered mental status You have been examined and treated today on an emergency basis only. This is not a substitute for, or an effort to provide, complete comprehensive medical care. It is impossible to recognize and treat all injuries or illnesses in a single emergency department visit. It is therefore important that you follow up closely with your PCP. Call as soon as possible for an appointment. Thank you for your time and consideration. I look forward to speaking with you again soon. Please don't hesitate to call us if you have any questions.
[2017-12-17 13:44] VITALS: BP 125/72; PULSE 77; O2SAT 98
== END 2017-12-17 13:45 | disposition home or self-care (01) ==
LOC: EDBD 11:14 → C.EDC 11:15
DX: E86.0 Dehydration (principal); Z86.73 Personal history of transient ischemic attack (TIA), and cerebral infarction without residual deficits; Z95.1 Presence of aortocoronary bypass graft